=== PATIENT | female | born 2000 | race Caucasian/White ===

== ENCOUNTER 2020-05-06 21:59 | Emergency (ER) | payer OTHER ==
--- NOTE | 2020-05-06 22:52 | ED Physician Documentation ---
PD HPI ABD PAIN - Stated complaint Stated Complaint: ABD PAIN, BACK PAIN - Chief complaint Chief Complaint: Abd Pain - History obtained from History obtained from: Patient - History of Present Illness Timing - onset: Today Timing - duration: Hours Timing - details: Gradual onset, Still present, Waxing and waning Quality: Cramping, Aching, Pain Location: All over / everywhere, RUQ Radiation: Right flank Improved by: Laying still Worsened by: Moving, Breathing, Position, Palpation Associated symptoms: No: Nausea, Vomiting Similar symptoms before: Has not had sx before Recently seen: Clinic - Additional information Additional information: 19 y/o female who is about 12 weeks has developed right sided abdominal pain today with some radiation to her back. She developed this this morning and she went to work and had this pain all day. The pain is worse if she is up and walking around and it hurts to touch the abdomen. She describes the pain as on the right side both upper and lower and radiating to her back. She has been able to drink and eat today and she has not vomited. She has some urinary frequency that she has attributed to being and she has never had UTI previously. She has not had fever and she has not had episode similar previously. Review of Systems Constitutional: denies: Fever, Chills Eyes: denies: Decreased vision Ears: denies: Ear pain Nose: denies: Rhinorrhea / runny nose, Congestion Throat: denies: Sore throat Cardiac: denies: Chest pain / pressure, Palpitations Respiratory: denies: Dyspnea, Cough GI: reports: Abdominal Pain. denies: Abdominal Swelling, Nausea, Vomiting, Constipation, Diarrhea : reports: Frequency. denies: Dysuria Skin: denies: Rash Musculoskeletal: reports: Back pain. denies: Neck pain, Extremity pain Neurologic: denies: Generalized weakness, Focal weakness, Numbness PD PAST MEDICAL HISTORY - Present Medications Home Medications: Ambulatory Orders Medication Instructions Recorded Confirmed Amox/Clav 875/125 [Augmentin] 1 each PO Q12H #10 tablet 05/07/20 - Allergies Allergies/Adverse Reactions: Allergies Allergy/AdvReac Type Severity Reaction Status Date / Time No Known Drug Allergies Allergy Verified 05/06/20 23:43 PD ED PE NORMAL - Vitals Vital signs reviewed: Yes (normal ) - General General: Alert and oriented X 3, No acute distress, Well developed/nourished - HEENT HEENT: Atraumatic, PERRL, EOMI - Neck Neck: Supple, no meningeal sign, No bony TTP - Cardiac Cardiac: RRR, No murmur - Respiratory Respiratory: No respiratory distress, Clear bilaterally - Abdomen Abdomen: Normal bowel sounds, Soft, Non distended, No organomegaly, Other (tenderness to the RUQ, RLQ and to the flank that is not reproducible. There is no garding tenderness and no rebound. There is tenderness to bimanual palpation of the right kidney. ) - Back Back: No spinal TTP, Other (initially not so tender but with time the right flank is more tender. ) - Derm Derm: Normal color, Warm and dry, No rash - Extremities Extremities: No deformity, No edema - Neuro Neuro: Alert and oriented X 3, lease analyst 2-12 intact, No motor deficit, No sensory deficit, Normal speech Eye Opening: Spontaneous Motor: Obeys Commands Verbal: Oriented GCS Score: 15 - Psych Psych: Normal mood, Normal affect Results - Vitals Vitals: Vital Signs - 24 hr 05/06/20 05/07/20 05/07/20 22:01 00:15 01:30 Temperature 36.4 C L 36.6 C Heart Rate 87 66 62 Respiratory 18 16 16 Rate Blood Pressure 122/67 108/67 113/74 O2 Saturation 100 99 98 Oxygen O2 Source Room air - Labs Labs: Laboratory Tests 05/06/20 05/06/20 05/06/20 22:15 22:15 22:15 WBC 14.7 H RBC 3.95 L Hgb 11.7 L Hct 34.8 L MCV 88.1 MCH 29.6 MCHC 33.6 RDW 14.6 Plt Count 273 MPV 9.7 Neut # (Auto) 10.7 H Lymph # (Auto) 2.8 Frio # (Auto) 1.0 Eos # (Auto) 0.1 Baso # (Auto) 0.0 Absolute Nucleated RBC 0.00 Nucleated RBC % 0.0 Sodium 137 Potassium 3.3 L Chloride 100 L Carbon Dioxide 24 Anion Gap 13.0 BUN 11 Creatinine 0.6 Estimated GFR (MDRD) 126 Glucose 85 Calcium 9.4 Total Bilirubin 0.4 AST 15 ALT 12 Alkaline Phosphatase 50 Total Protein 7.1 Albumin 3.9 Globulin 3.2 Albumin/Globulin Ratio 1.2 Lipase 23 Urine Color YELLOW Urine Clarity HAZY Urine pH 5.5 Ur Specific Hudson >=1.030 H Urine Protein 30 H Urine Glucose (UA) NEGATIVE Urine Ketones NEGATIVE Urine Occult Blood MODERATE H Urine Nitrite POSITIVE H Urine Bilirubin NEGATIVE Urine Urobilinogen 0.2 (NORMAL) Ur Leukocyte Esterase TRACE H Urine RBC 6-10 H Urine WBC 11-25 H Ur Squamous Epith Cells FEW Squamous Urine Bacteria Moderate H Ur Microscopic Review INDICATED Urine Culture Comments INDICATED - Rads (name of study) Abdominal ultrasound Radiology: Prelim report reviewed (Impression: No gallstones or biliary dilation. Echogenic liver without enlargement, small left lobe hepatic cyst.), EMP read indepedently, See rad report Pelvic ultrasound Radiology: Prelim report reviewed (Impression: 1. Intrauterine gestation with heartbeat of 163bpm. 2. unremarkable ovaries without torsion. 3. No pelvic fluid. 4. Possible mesenteric adenitis. The appendix is not identified.), EMP read indepedently, See rad report Procedures - Bedside sono Bedside sono by EMP: With use bedside ultrasound the right kidney is imaged there is no specific abn ormality and the kidney is not sonographically tender. The gallbladder is imaged there is some shadowing no obvious stone no gallbladder wall thickening or pericholecystic fluid. The fetus is imaged it is mobile and has a heart rate of 156 bpm. PD MEDICAL DECISION MAKING - ED course Complexity details: reviewed results, re-evaluated patient, considered differential, d/w patient ED course: 19-year-old female who is 12 weeks has developed right-sided abdominal pain. She is eating and she is not febrile. She does have an elevated white blood cell count and she complains of pain worse with movement and with palpation. Examination of the abdomen is not reproducible each time she is e xamined pain seems to be coming from somewhere different. After repeated examination it does appear that most likely there is tenderness to bimanual palpation of the right kidney. Even after examining the kidney by ultrasound and sonographically palpating the kidney which did not appear tender at the time.A formal ultrasound done by the coating technician is obtained and demonstrates no secondary findings of acute appendicitis and a normal gallbladder. The patient has evidence of urinary tract infection on microscopic examination of the urine. She has pain to bimanual palpation of the right kidney and an elevated white blood cell count. I am diagnosing her with acute pyelonephritis and we are treating her with a gram of Rocephin intravenously and will place her on Augmentin. She has follow-up with her OB doctor tomorrow and I have asked the patient specifically to be reexamined with concerns of right lower quadrant pain. I suspect this patient's symptoms are related to the pyelonephritis. Departure - Departure Disposition: 01 Home, Self Care Clinical Impression: Pyelonephritis Condition: Stable Instructions: ED Abdominal Pain Appendx Poss, ED Kidney Infec Female Follow-Up: TANNER EDDY MD [Primary Care Provider] - Prescriptions: Amox/Clav 875/125 [Augmentin] 1 each PO Q12H #10 tablet Comments: Today after much investigation it appears the most likely cause of your pain is related to an infection in the right kidney. Extra fluids and the antibiotics are the mainstay of treatment. Take Tylenol for the pain as needed. There is still a question about where this pain is coming from and reexamination by your doctor tomorrow is imperative. There is still concern for the possibility of appendicitis although I really suspect this is from your kidney. Discharge Date/Time: 05/07/20 01:33
[2020-05-06 22:57] LABS: BASOPHILS % (AUTO) 0.3 %; EOSINOPHILS # (AUTO) 0.1 10^3/uL (0.0-0.7); EOSINOPHILS % (AUTO) 0.4 %; HGB - HEMOGLOBIN 11.7 g/dL (12.0-16.0); LYMPHOCYTES # (AUTO) 2.8 10^3/uL (1.5-3.5); LYMPHOCYTES % (AUTO) 19.3 %; MEAN CORPUSCULAR HEMOGLOBIN 29.6 pg (27.0-31.0); MEAN CORPUSCULAR HGB CONC 33.6 g/dL (32.0-36.0); MEAN CORPUSCULAR VOLUME 88.1 fL (81.0-99.0); MEAN PLATELET VOLUME 9.7 fL (7.9-10.8); MONOCYTES % (AUTO) 6.6 %; NEUTROPHILS # (AUTO) 10.7 10^3/uL (1.5-6.6); NEUTROPHILS % (AUTO) 72.9 %; PLT - PLATELET COUNT 273 10^3/uL (130-450); RED BLOOD COUNT 3.95 10^6/uL (4.20-5.40); RED CELL DISTRIBUTION WIDTH 14.6 % (12.0-15.0); WHITE BLOOD COUNT 14.7 x10^3/uL (4.8-10.8)
[2020-05-06 23:00] LABS: BILIRUBIN,URINE NEGATIVE (NEGATIVE); GLUCOSE, URINE (UA) NEGATIVE (NEGATIVE); KETONES,URINE (UA) NEGATIVE (NEGATIVE); LEUKOCYTE ESTERASE, URINE TRACE (NEGATIVE); NITRITE,URINE POSITIVE (NEGATIVE); OCCULT BLOOD,URINE MODERATE (NEGATIVE); PH,URINE 5.5 PH (5.0-7.5); PROTEIN,URINE 30 mg/dL (NEGATIVE); UROBILINOGEN,URINE 0.2 (NORMAL) E.U./dL (NORMAL)
[2020-05-06 23:02] LABS: CLARITY,URINE HAZY (CLEAR)
[2020-05-06 23:06] LABS: ALBUMIN 3.9 g/dL (3.2-5.5); ALBUMIN/GLOBULIN RATIO 1.2 (1.0-2.2); BACTERIA,URINE Moderate /HPF (None Seen); BILIRUBIN,TOTAL 0.4 mg/dL (0.2-1.0); CALCIUM 9.4 mg/dL (8.5-10.3); CREATININE 0.6 mg/dL (0.4-1.0); SQUAMOUS EPITHELIAL CELL,UR FEW Squamous (<= Few); TOTAL PROTEIN 7.1 g/dL (6.7-8.2)
[2020-05-07] MEDS ORDERED: cefTRIAXone 1 GM in SODIUM CHLORIDE 0.9% MINIBAG 100 ML IV STA (00:49)
[2020-05-07] MEDS ORDERED: ACETAMINOPHEN 1,000 MG/100 ML 100 ML IV ONE (00:50)
[2020-05-07] MEDS ORDERED: cefTRIAXone 1 GM VIAL ONE (01:06)
[2020-05-07] MEDS ORDERED: ACETAMINOPHEN 325 MG TABLET PO STA (01:11)
[2020-05-07 01:34] VITALS: BP 113/74
--- NOTE | 2020-05-07 09:09 | Ultrasound Report ---
PROCEDURE: Abdomen Limited INDICATIONS: R sided pain, RUQ RLQ RUQ >RLQ TECHNIQUE: Real-time scanning was performed of the abdominal and retroperitoneal organs, with image documentatio n. COMPARISON: Ultrasound pelvis 05/06/2020. FINDINGS: Liver: Liver is normal in size. There is mild increased echogenicity suggestive of steatosis. There is a focus of relative hypoechogenicity within the left lobe measuring 9 x 7 x 7 mm. Gallbladder: Gallbladder demonstrates no visualized stone. Wall thickness is within normal limits sanjiv suring 14 mm. Biliary ducts: Intrahepatic bile ducts are non-dilated. Extrahepatic bile duct caliber measures 2.6 mm. Normal is 6-7 mm or less in diameter, or 10 mm or less post-cholecystectomy. Pancreas: Not well visualized. Kidneys: Kidneys are normal in size and echotexture. Right kidney measures 10.2 cm long. No hydron ephrosis or nephrolithiasis. No solid masses. IVC: Intrahepatic inferior vena cava is patent. Miscellaneous: No free abdominal fluid. IMPRESSION: 1. Possible subcentimeter left hepatic cyst. Otherwise, unremarkable. The above findings are concordant with preliminary report. Reviewed by: Allie Bassett MD on 05/07/2020 9:08 AM PST Approved by: Allie Bassett MD on 05/07/2020 9:08 AM PST Station ID: [id number]
--- NOTE | 2020-05-07 09:12 | Ultrasound Report ---
PROCEDURE: Pelvic Complete INDICATIONS: RLQ pain RUQ pain TECHNIQUE: Real-time transabdominal scanning was performed of the pelvic organs, with image documentation. COMPARISON: Ultrasound abdomen 05/06/2020 FINDINGS: Uterus: Uterus is normal in size at 11.8 x 7.7 cm. Single intrauterine is identified with heart rate of 163 bpm. Ovaries: Right ovary measures 2.6 x 1.6 x 1.4 cm, volume 3 cc. Less than 12 follicles are noted. Lef t ovary measures 1.9 x 2.1 x 1.0 cm, volume 2.1 cc. Less than 12 follicles are noted. Vascular flow i s present bilaterally. Other: No free pelvic fluid. Limited scanning through the kidneys shows no hydronephrosis. Appendi x is not visualized. Scattered right lower quadrant subcentimeter lymph nodes are present IMPRESSION: Single live intrauterine as above. Scattered subcentimeter right lower quadrant lymph nodes without visualization of the appendix. Mesen teric adenitis cannot be definitively excluded. However, given lack of appendix visualization, append icitis also cannot be definitively excluded. The above findings are concordant with preliminary report. Reviewed by: Allie Bassett MD on 05/07/2020 9:11 AM PST Approved by: Allie Bassett MD on 05/07/2020 9:11 AM PST Station ID: [id number]
== END 2020-05-07 01:33 | disposition home or self-care (01) ==
LOC: ED 21:59
DX: O23.01 Infections of kidney in pregnancy, first trimester (principal); Z3A.12 12 weeks gestation of pregnancy
CPT/HCPCS: 36415; 76705; 76856; 80053; 81001; 83690; 85025; 87086; 87181; 96374; 99284; A9270; 81003